=== PATIENT | male | born 1965 | race Caucasian/White ===

== ENCOUNTER 2016-06-27 03:21 | Emergency (ER) | payer OTHER ==
[2016-06-27 03:50] LABS: MANUAL DIFF NEEDED? NO
[2016-06-27 03:53] LABS: BASO% 0.1 % (0.0-0.8); EOS# 0.25 X1000 (0.0-0.7); HEMOGLOBIN 12.8 g/dL (14.0-18.0); LYMPH# 1.68 X1000 (1.2-3.4); LYMPH% 20.4 % (20.5-51.1); MCH 33.2 PG (27-31); MCHC 33.7 g/dL (33-37); MCV 98.4 FL (81-99); MONO# 0.69 X1000 (0.11-0.59); MONO% 8.4 % (1.7-9.3); MPV 11.8 FL (7.4-10.4); NEUT% 68.1 % (42.2-75.2); PLT 148 X1000 (130-400); RBC 3.86 XMIL (4.7-6.1)
[2016-06-27] MEDS ORDERED: DILAUDID IV ONE (03:53)
[2016-06-27] MEDS ORDERED: PROTONIX IV ONE (03:53)
[2016-06-27] MEDS ORDERED: SODIUM CHLORIDE 0.9% INJ ONE (03:53)
[2016-06-27] MEDS ORDERED: ZOFRAN IV ONE (03:53)
--- NOTE | 2016-06-27 04:01 | PROVIDER DOCUMENTATION ---
HPI-Abdominal Pain/GI Problem - General Chief Complaint: Abdominal Pain Stated Complaint: PANCREATITIS Time Seen by Provider: 06/27/16 03:27 Source: patient, EMS Allergies/Adverse Reactions: Patient Allergies Allergy/AdvReac Type Severity Reaction Status Date / Time ketorolac tromethamine * Allergy Intermediate RASH Verified 06/27/16 03:47 [From Toradol] tramadol HCl * [From Ultram] Allergy Intermediate HEADACHE Verified 06/27/16 03: 47 etodolac [From Lodine] Allergy Mild RASH Verified 06/27/16 03:47 ibuprofen Allergy RASH Verified 06/27/16 03:47 Home Medications: Home Medication List Medication Instructions Recorded Confirmed Last Taken Type Clonazepam [Klonopin] 1 mg PO DAILY 06/27/16 06/27/16 06/26/16 06:00 History Ondansetron Odt [Zofran 4 mg Odt] 4 mg PO Q6H PRN PRN #10 tablet 06/27/16 Unknown Rx Pantoprazole [Protonix] 40 mg PO DAILY@0700 #30 tablet 06/27/16 Unknown Rx - History of Present Illness-ABD Nature of Presenting Problems: hx of pancreatitis ..pt claim epigast pain w/nausea and 6 times vomiting since yesterd pm ,,last meal was a cheese burger ..no diarrhea Abdominal Pain Onset Location: reports: epigastric Pain Radiation: reports: back Quality of Pain: reports: fullness, sharp, throbbing Severity in ED: reports: moderate Onset/Duration: reports: 24 hours ago Timing: reports: still present, intermittent, changing over time Exposure to sick contacts?: No Modifying Factors: improves with: nothing Associated Symptoms: reports: heartburn, nausea, vomiting. denies: chest pain, constipation, fever/chills, genitourinary problems Last BM: 24 hours ago Dark Stools Present?: reports: none noticed Rectal Bleeding: reports: none Similar Symptoms Previously?: No Recently seen or treated by another doctor?: No Review of Systems - Adult - REVIEW OF SYSTEMS - ADULT Constitutional: reports: see HPI Past History - Adult - PAST MEDICAL HISTORY-ADULT Review of Records: reports: Old Records Reviewed, Nursing Assessment Review, Social history reviewed & non-contributory. Major Childhood Illnesses: reports: denies history Cardiovascular: reports: denies history Gastrointestinal: reports: GERD, pancreatitis Genitourinary: reports: denies history Musculoskeletal: reports: arthritis, chronic pain, neck/back injury Neurological: reports: denies history Psychiatric: reports: anxiety, bipolar, depression - PRIOR SURGERIES/PROCEDURES Surgical/Procedure History: reports: appendectomy, cholecystectomy, tonsillectomy - IMMUNIZATION STATUS Childhood Immunizations: See Nurse Assessment Flu Vaccine: See Nurse Assessment - FAMILY HISTORY Family History: reviewed, not pertinent - SOCIAL HISTORY Smoking: less than 1 pack/day Alcohol Use Frequency: sober (former use) Living Situation: alone Physical Exam-General - PHYSICAL EXAM-ADULT Initial Vital Signs Reviewed: Yes - CONSTITUTIONAL General Appearance: appears well, alert, no apparent distress, thin, anxious - EYES Eyes: PERRL/EOMI - HEAD, EARS, NOSE, MOUTH & THROAT HENMT: normocephalic/atraumatic, normal ENT inspection, TMs normal - NECK Neck: non-tender, full range of motion, supple - RESPIRATORY Respiratory: chest non-tender, lungs clear, normal breath sounds, no pleuratic chest pain, no respiratory distress, no accessory muscle use - CARDIOVASCULAR Cardiovascular: normal peripheral pulses, regular rate, rhythm, no edema, no gallop - GASTROINTESTINAL (ABDOMEN) Abdominal Exam: normal bowel sounds, soft, no organomegaly, tenderness (only). negative: McBurney's point tenderness - LYMPHATIC Lymphatic: no adenopathy - MUSCULOSKELETAL Back Exam: normal inspection, no CVA tenderness, no vertebral tenderness Extremity: normal range of motion, non-tender, normal gait, normal inspection, no pedal edema, no calf tenderness - SKIN Integumentary: normal color, normal turgor, warm/dry - NEUROLOGIC Neurologic: ceramic capacitor processor II-XII nml as tested, grossly normal, no motor/sensory deficits - PSYCHIATRIC Psych/Mental Status: normal mood/affect, normal thought content, oriented x 3 Progress - REASSESSMENT Reassessment #1 Time Reassessed: 04:41 Status: improving Departure - Departure Time of Disposition Order: 04:41 DIAGNOSIS: Generalized anxiety disorder, Epigastric pain, Vomiting alone Disposition: HOME 01 Certified Medical Emergency: Emergent Condition: Stable Prescriptions: Pantoprazole [Protonix] 40 mg PO DAILY@0700 #30 tablet Ondansetron Odt [Zofran 4 mg Odt] 4 mg PO Q6H PRN PRN #10 tablet PRN Reason: Nausea And Vomiting
[2016-06-27 04:10] LABS: AGAP 11; ALBUMIN 4.1 g/dL (3.5-5.0); ALKALINE PHOSPHATASE 98 U/L (32-122); AMYLASE 53 U/L (20-200); BUN 12 mg/dL (8-22); CHLORIDE 100 mmol/L (98-107); COSMO 277; GOT 21 U/L (10-34); GPT 5 U/L (10-44); LIPASE 37 U/L (13-60); SODIUM 139 mmol/L (136-145); TCO2 28 mmol/L (25-35); TOTAL BILIRUBIN 0.29 mg/dL (0.20-1.00)
[2016-06-27 04:45] LABS: URINE CULTURE NEEDED? NO; URINE MICRO REVIEW NEEDED? NO; URINE SOURCE CATH
[2016-06-27] MEDS ORDERED: NS 1,000 ML IV ONE (04:45)
[2016-06-27 04:50] LABS: BILIRUBIN URINE NEGATIVE (NEGATIVE); BLOOD URINE NEGATIVE (NEGATIVE); COLOR STRAW; GLUCOSE URINE NEGATIVE (NEGATIVE); LEUKOCYTES URINE NEGATIVE (NEGATIVE); NITRITE URINE NEGATIVE (NEGATIVE); PROTEIN URINE NEGATIVE (NEGATIVE); SP GRAVITY URINE 1.007; TURBIDITY URINE CLEAR (CLEAR); UROBILINOGEN URINE NORMAL (NORMAL)
[2016-06-27 04:51] LABS: UR EPITHELIAL CELLS <10 /HPF (<10); URINE BACTERIA NEGATIVE /HPF; URINE RBC <10 /HPF (<10); URINE WBC <10 /HPF (<10)
[2016-06-27 05:08] LABS: UR AMPHETAMINES QUAL NONE DETECTED (NONE DETECT); UR BARBITUATES QUAL NONE DETECTED (NONE DETECT); UR BENZODIAZEPIN QUAL NONE DETECTED (NONE DETECT)
[2016-06-27 05:09] LABS: UR CANNABINOIDS QUAL NONE DETECTED (NONE DETECT); UR COCAINE QUAL NONE DETECTED (NONE DETECT); UR METHADONE QUAL NONE DETECTED (NONE DETECT); UR OPIATES QUAL NONE DETECTED (NONE DETECT); UR OXYCODONE QUAL NONE DETECTED (NONE DETECT); UR PCP QUAL NONE DETECTED (NONE DETECT)
[2016-06-27 05:45] VITALS: BP 135/77
--- NOTE | 2016-06-27 08:28 | Diag Imaging Result Document ---
PROCEDURE NAME: FLAT/UPRIGHT ABD/1 VIEW CHEST - 06/27/2016 FLAT AND UPRIGHT AND CHEST, THREE VIEWS: COMPARISON: Compared to 09/17/2015. FINDINGS: The lungs are well expanded. The heart is not enlarged. No pneumonia. I believe there is a small hiatal hernia. No free air beneath the diaphragm. There is stool throughout the colon. The bowel loops are not dilated. The gallbladder has been removed. Mild scoliosis. IMPRESSION: Constipation.
--- NOTE | 2016-06-28 09:49 | EKG Report ---
Test Performed on : 06/27/2016 02:26:04 AM Test Reason : CP Blood Pressure : / mmHG Vent. Rate : 065 BPM Atrial Rate : 065 BPM P-R Int : 152 ms QRS Dur : 076 ms QT Int : 412 ms P-R-T Axes : 069 019 043 degrees QTc Int : 428 ms Normal sinus rhythm. Normal ECG When compared with ECG of 30-JUL-2015 21:37, No significant change was found Unconfirmed Result
== END 2016-06-27 05:45 | disposition home or self-care (01) ==
LOC: ED 03:21
DX: R10.13 Epigastric pain (principal); R11.2 Nausea with vomiting, unspecified; F41.1 Generalized anxiety disorder; M54.9 Dorsalgia, unspecified; R12 Heartburn; M19.90 Unspecified osteoarthritis, unspecified site; G89.29 Other chronic pain; Z79.899 Other long term (current) drug therapy; F31.9 Bipolar disorder, unspecified; F32.9 Major depressive disorder, single episode, unspecified; F17.210 Nicotine dependence, cigarettes, uncomplicated; K59.00 Constipation, unspecified
CPT/HCPCS: 74022; 80053; 81001; 82150; 83690; 84484; 85025; 93005; 96374; C9113; G0480; J1170; J2405; J7030; P9612; 80320; 80324; 80345; 80346; 80349; 80353; 80358; 80361; 80365; 83992; S0164